=== PATIENT | male | born 1930 | race Caucasian/White ===

== ENCOUNTER 2018-02-17 17:00 | Emergency (ER) | payer BC ==
[2018-02-17] MEDS ORDERED: Lidocaine 1% INJ* 10 MG/ML 30 ML SDV ONE (17:05)
--- NOTE | 2018-02-17 17:12 | ED ---
Laceration/Wound HPI - HPI Summary HPI Summary: This patient is a 87 year old M BIBA to ED with a chief complaint of low BP and large blood loss s/p getting a small laceration on his R heel. The patient is on blood thinners. The patient was doing the recycling when he got a little cut on his foot and he didnt realize he was bleeding until he lost a lot of blood. The patient rates the pain 0/10 in severity. Symptoms aggravated by nothing. Symptoms alleviated by nothing. EMS reports the patient was diaphoretic, dizziness, pallor, and hypotensive upon arrival. Upon arrival to the ER, the patient is feeling a lot better. - History of Current Complaint Stated Complaint: HEMORRHAGE Hx Obtained From: Patient Onset/Duration: Sudden Onset, Lasting Minutes Aggravating: Nothing Alleviating: Nothing Current Severity: None Pain Intensity: 0 Pain Scale Used: 0-10 Numeric - Allergy/Home Medications Allergies/Adverse Reactions: Allergies Allergy/AdvReac Type Severity Reaction Status Date / Time MS Shellfish Allergy Allergy Intermediate Rash Verified 02/17/18 17:28 [Shellfish Allergy] MS Amiodarone [Amiodarone] Allergy Unknown Verified 02/17/18 17:28 Reaction Details MS Rivaroxaban [From Xarelto] Allergy Unknown Verified 02/17/18 17:28 Reaction Details MS Solifenacin Allergy Unknown Verified 02/17/18 17:28 [From Vesicare] Reaction Details Home Medications: Home Medications Apixaban* [Eliquis*] 2.5 mg PO BID 02/17/18 [History Confirmed 02/17/18] Aspirin EC TAB* [Ecotrin EC Low Dose 81 MG*] 81 mg PO DAILY 02/17/18 [History Confirmed 02/17/18] Atenolol TAB* [Tenormin TAB* 25 MG] 50 mg PO QPM 02/17/18 [History Confirmed ] Digoxin TAB* [Lanoxin TAB*] 0.125 mg PO QPM 02/17/18 [History Confirmed 02/17/18 ] Gabapentin CAP(*) [Neurontin 100 mg CAP(*)] 100 mg PO BEDTIME PRN 02/17/18 [ History Confirmed 02/17/18] Solifenacin(NF) [Vesicare(NF)] 5 mg PO DAILY 02/17/18 [History Confirmed ] PMH/Surg Hx/FS Hx/Imm Hx Endocrine/Hematology History: Reports: Hx Anticoagulant Therapy - ASA 81 mg Denies: Hx Diabetes, Hx Thyroid Disease Cardiovascular History: Reports: Hx Atrial Fibrillation, Hx Pacemaker/ICD - 2010 , Hx Rheumatic Fever, Other Cardiovascular Problems/Disorders - AFIB Denies: Hx Hypertension Respiratory History: Denies: Hx Asthma, Hx Chronic Obstructive Pulmonary Disease (COPD) GI History: Denies: Hx Ulcer History: Reports: Hx Benign Prostatic Hyperplasia, Other Problems/ Disorders - bladder CA Musculoskeletal History: Reports: Hx Arthritis - RIGHT HIP Sensory History: Reports: Hx Cataracts, Hx Contacts or Glasses - READING GLASSES Denies: Hx Hearing Aid Opthamlomology History: Reports: Hx Cataracts, Hx Contacts or Glasses - READING GLASSES - Cancer History Cancer Type, Location and Year: bladder cancer - - Surgical History Surgery Procedure, Year, and Place: appendectomy 1949, 2 hernias, pacemaker in 2007. Hx Anesthesia Reactions: No Infectious Disease History: Denies: Hx Hepatitis, Hx Human Immunodeficiency Virus (HIV) - Family History Known Family History: Positive: Diabetes - Social History Alcohol Use: Daily Alcohol Amount: BOTTLE WINE/DAY Substance Use Type: Reports: None Smoking Status (MU): Former Smoker Type: Cigars Length of Time of Smoking/Using Tobacco: 25 YRS Have You Smoked in the Last Year: No Review of Systems Positive: Skin Diaphoresis Positive: Other - hypotensive Positive: Other - pallor; small laceration on L heel, had large blood loss Neurological: Other - dizziness All Other Systems Reviewed And Are Negative: Yes Physical Exam - Summary Physical Exam Summary: Appearance: Well appearing, no pain distress Skin: warm, dry, reflects adequate perfusion. Bleeding spot over the R heel ( 0.5 cm long) Head/face: normal Eyes: EOMI, JOSS ENT: normal Neck: supple, non-tender Respiratory: CTA, breath sounds present Cardiovascular: RRR, pulses symmetrical Abdomen: non-tender, soft Bowel: present Musculoskeletal: normal, strength/ROM intact Neuro: normal, sensory motor intact, A&Ox3 Triage Information Reviewed: Yes Vital Signs Reviewed: Yes Procedures - Laceration/Wound Repair 1 Location: lower extremity - R heel Description: Linear Anesthesia: 2.0%, Lido - 5 cc Length, Depth and Shape: 0.5 cm long Laceration/Wound Explored: clean Suture Type: Other - 4-0 ethilon, figure or 8, raised, to control bleeding Number of Sutures: 1 Layer Closure?: Yes Sterile Dressing Applied?: Yes Diagnostics - Laboratory Result Diagrams: 02/17/18 17:53 02/17/18 17:53 Lab Statement: Any lab studies that have been ordered have been reviewed, and results considered in the medical decision making process. Re-Evaluation - Re-Evaluation First Eval Re-Evaluation Time: 18:33 Comment: Discussed lab results with the patient. Patient and family understand and agree with this plan. Laceration Repair Course/Dx - Course Assessment/Plan: This patient is a 87 year old M BIBA to ED with a chief complaint of low BP and large blood loss s/p getting a small laceration on his R heel. The patient's laceration over R heel was sutured x1 (figure of 8). In the ED course, the patient was given fluids and boostrix. Blood work obtained. This patient will be discharged. Patient understands and agrees wtih this plan. - Differential Dx Differental Diagnoses: Laceration, Other - laceration of foot, anemia - Clinical Impression Provider Diagnoses: Laceration of foot, Anemia - Critical Care Time Critical Care Time: 30-74 min Discharge - Sign-Out/Discharge Documenting (check all that apply): Patient Departure - discharge - Discharge Plan Condition: Stable Disposition: HOME Patient Education Materials: Care For Your Stitches (ED), Laceration (ED), Anemia (ED) Referrals: Porter Arrington MD [Primary Care Provider] - (Repeat CBC in 1 week with your PCP.) Additional Instructions: Have a wound check done in 3 days. Have suture removal on 02/22/2018. Repeat CBC in 1 week with your primary care provider. PLEASE RETURN TO THE ED FOR ANY NEW OR WORSENING SYMPTOMS. - Billing Disposition and Condition Condition: STABLE Disposition: Home - Attestation Statements Document Initiated by Scribe: Yes Documenting Scribe: James Silva Provider For Whom Elisa is Documenting (Include Credential): Nico Banerjee MD Scribe Attestation: James Lieberman, scribed for Nico Banerjee MD on 02/17/18 at 1854. Scribe Documentation Reviewed: Yes Provider Attestation: The documentation as recorded by the scribe, James Ricardo accurately reflects the service I personally performed and the decisions made by me, Nico Banerjee MD
[2018-02-17] MEDS ORDERED: NS 0.9% 1000 ML* 1,000 ML IV ONE (17:17)
[2018-02-17] MEDS ORDERED: Tetan/Diph/Pertus SYR(Tdap)* 0.5 ML SYR(BOOSTRIX) use SYR IM ONE (17:18)
--- OUTSIDE RECORDS SUMMARY | 2018-02-17 17:44 | XMS REPORT ---
:1930 External Reference #:[id number] Author Organization [facility] Address [address] [place] [address] [place] [address] Phone [phone] Care Team Providers Name Role Phone Porter Arrington MD Primary Care Physician Unavailable Payers Type Date Identification Numbers Payment Provider Subscriber Commercial Effective: Policy Number: BS Facets Nadeem Pereznett 2013 [id number] Group Name: [employer] [address] [address] PayID: [id number] [place] [address] Medigap Part B Effective: Policy Number: [facility] Alea Nadeem Moyer 2011 [id number] [place]ings Expires: 2012 Group Number: [id number] [address] Group Name: [place] [address] PayID: [id number] Medigap Part B Effective: 2012 Policy Number: Pcip Nadeem Stallings [id number] Expires: 2013 Group Number: [id number] [address] [address] [place] [address] Problems Date Description Provider Status Onset: 04/20/2013 Atrial fibrillation Dhara Caraballo M.D. Active Onset: 04/20/2013 Cardiac pacemaker in situ Dhara Caraballo M.D. Active Onset: 07/22/2013 Palpitations Dhara Caraballo M.D. Active Onset: 07/22/2013 Premature beats Dhara Caraballo M.D. Active Onset: 08/31/2013 Sinus node dysfunction GARCÍA Monterroso Active Onset: 09/30/2013 Malaise and fatigue GARCÍA Monterroso Active Onset: 09/30/2013 Paroxysmal ventricular tachycardia GARCÍA Monterroso Active Onset: 04/07/2014 Preoperative cardiovascular examination Dhara Caraballo M.D. Active Onset: 04/17/2015 Chronic atrial fibrillation Dhara Caraballo M.D. Active Onset: 04/17/2015 Edema Dhara Caraballo M.D. Active Onset: 11/11/2016 Cardiomyopathy Dhara Caraballo M.D. Active Onset: 11/11/2016 Mitral valve disorder Dhara Caraballo M.D. 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 ETOH Use Drinks 4 Alcoholic Beverages Per Day ETOH Use Denies alcohol use Smoking Patient is a former smoker quit in 1985 Recreational Drug Use Denies Drug Use Daily Caffeine Does Not Consume Caffeine Exercise Type/Frequency Does not exercise Goes up and down stairs daily and does housework General Hx Text Do you follow a special diet: no try to eat balance diet Do you have problems with snoring, daytime fatigue: no snoring, varying daytime fatigue. Allergies, Adverse Reactions, Alerts Date Description Reaction Status Severity Comments 04/20/2013 Amiodarone nightmares active 04/20/2013 Coumadin fatigue active 04/20/2013 Vit B3 active 06/01/2013 Vesicare violent palpitations active Moderate to Severe 08/31/2013 Xarelto fatigue/dizziness active 10/26/2015 Shellfish-derived active Products 10/26/2015 Tumeric Urticaria active Mild to Moderate Medications Medication Date Status Form Strength Qnty SIG Indications Ordering Provider Eliquis 07/03/ Active Tablets 2.5mg 60tab 1 tablet by Dhara 2018 s mouth twice a Ilya, day. blood M.D. thinner. Digoxin 09/30/ Active Tablets 125mcg 90tab take 1 tab I48.2 Dhara 2014 s daily at [place], night M.D. Ranitidine / Active Tablets 75mg 1 po qd prn, Unknown 0000 up to 150mg prn Diltiazem HCL / Active Tablets 30mg 180ta 1 po prn for Jander, 0000 bs epsiodes of MD Kaylyn palpitations at night (occasionally ) Atenolol / Active Tablets 25mg 180ta 2 tablet by Dhara 0000 bs mouth daily [place], at night M.D. Ketoconazole / Active Shampoo 2% Use Topically Unknown 0000 Ass Needed Imiquimod / Active Cream 5% As needed [place], 0000 [place], DPTerra Furosemide 10/27/ Hx Tablets 20mg 30tab take one tab Dhara 2015 - s by mouth Ilya, 04/17/ every other M.D. 2015 day or if weight gain >3 lbs ( pt stop taking 2 months ok , per Dr. Hahn) Metoprolol 10/14/ Hx Tablets 25mg 45tab 1 and 05/26 427.31 Dhara Succinate ER 2014 - ER 24HR s daily in [place], 04/06/ evening M.D. 2013 Xarelto 08/05/ Hx Tablets 20mg 20tab 1 tab po 427.31 Dhara 2013 - s daily with a Ilya, 08/12/ meal M.D. 2013 Diltiazem CD / Hx Caps ER 120mg 30cap 1 po qd Unknown 0000 - 24HR s 2013 Aspir-Low / Hx Tablets 81mg 30tab 1 po qd PM Unknown 0000 - DR s 2017 Coq-10 / Hx Capsules 30mg 1 po qd Unknown 0000 - 2013 Triamcinolone / Hx Cream 0.025% 15gm apply to Unknown Acetonide 0000 - affected area 10/24/ daily as 2016 needed Metoprolol / Hx Tablets 50mg 60tab po qhs 427.60 Dhara Succinate ER 0000 - ER 24HR s [place], 10/14/ M.D. 2014 Fluorouracil / Hx Solution 2% as needed Unknown 0000 - 2017 Gabapentin / Hx Capsules 100mg 1 by mouth Unknown 0000 - one times a 06/17/ day 2018 Terbinafine HCL / Hx Cream 1% apply to Unknown 0000 - affected as 06/16/ needed 2018 Medications Administered in Office Medication Date Status Form Strength Qnty SIG Indications Ordering Provider Xiaflex Inj Administered Injection Sarai Collagenase,Cl 012 Marc-Chandrakant ostridium g, M.D. Histolyticum, 0.01MG Xiaflex Inj Administered Injection Sarai Collagenase,Cl 012 Monico-Chandrakant ostridium g, M.D. Histolyticum, 0.01MG Xiaflex Inj Administered Injection Sarai Collagenase,Cl 012 Monico-Chandrakant ostridium g, M.D. Histolyticum, 0.01MG Xiaflex Inj Administered Injection Sarai Collagenase,Cl 012 Monico-Chandrakant ostridium g, M.D. Histolyticum, 0.01MG Xiaflex Inj Administered Injection Sarai Collagenase,Cl 011 Monico-Chandrakant ostridium g, M.D. Histolyticum, 0.01MG Xiaflex Inj Administered Injection Sarai Collagenase,Cl 011 Monico-Chandrakant ostridium g, M.D. Histolyticum, 0.01MG Xiaflex Inj Administered Injection Sarai Collagenase,Cl 011 Goran ostridium g, M.D. Histolyticum, 0.01MG Xiaflex Inj Administered Injection Sarai Collagenase,Cl 011 Goran ostridium g, M.D. Histolyticum, 0.01MG Vital Signs Date Vital Result Comment 02/02/2018 Height 66.5 inches 5'6.50" Weight 128.00 lb with shoes Heart Rate 60 /min BP Systolic Sitting 94 mmHg Rue reg cuff BP Diastolic Sitting 70 mmHg Rue reg cuff Respiratory Rate 16 /min BMI (Body Mass Index) 20.3 kg/m2 01/14/2018 Height 66.5 inches 5'6.50" Weight 133.00 lb with shoes Heart Rate 76 /min BP Systolic Sitting 100 mmHg lue reg cuff BP Diastolic Sitting 70 mmHg lue reg cuff BP Systolic Standing 100 mmHg BP Diastolic Standing 70 mmHg Respiratory Rate 16 /min BMI (Body Mass Index) 21.1 kg/m2 Ejection Fraction 55-60% 11/21/2015 echo 06/25/2017 Height 66.5 inches 5'6.50" Weight 132.00 lb Heart Rate 64 /min BP Systolic Sitting 102 mmHg Lue reg cuff BP Diastolic Sitting 68 mmHg Lue reg cuff BP Systolic Standing 104 mmHg Lue BP Diastolic Standing 70 mmHg Lue Respiratory Rate 16 /min BMI (Body Mass Index) 21.0 kg/m2 Ejection Fraction 55-60% 11/21/15 11/11/2016 Height 66.5 inches 5'6.50" Weight 128.00 lb with shoes Heart Rate 64 /min BP Systolic Sitting 112 mmHg Rue reg cuff BP Diastolic Sitting 60 mmHg Rue reg cuff BP Systolic Standing 112 mmHg Rue reg cuff BP Diastolic Standing 62 mmHg Rue reg cuff Respiratory Rate 15 /min BMI (Body Mass Index) 20.3 kg/m2 Ejection Fraction 55-60% 11/21/2015-echo 06/17/2016 Height 66.5 inches 5'6.50" Weight 134.00 lb with shoes Heart Rate 64 /min BP Systolic Sitting 122 mmHg Ra reg cuff BP Diastolic Sitting 62 mmHg Ra reg cuff BP Systolic Standing 122 mmHg Ra reg cuff BP Diastolic Standing 58 mmHg Ra reg cuff BMI (Body Mass Index) 21.3 kg/m2 Ejection Fraction 55% - 60% echo 11/21/15 10/26/2015 Height 66.5 inches 5'6.50" Weight 136.31 lb no shoes Heart Rate 60 /min BP Systolic Sitting 118 mmHg Ra reg cuff BP Diastolic Sitting 60 mmHg Ra reg cuff BP Systolic Standing 110 mmHg BP Diastolic Standing 58 mmHg Respiratory Rate 17 /min BMI (Body Mass Index) 21.7 kg/m2 Ejection Fraction 55-60% 07/06/15 04/17/2015 Height 66.5 inches 5'6.50" Weight 135.00 lb w/o shoes Heart Rate 58 /min reg BP Systolic Sitting 118 mmHg Lue, reg cuff BP Diastolic Sitting 64 mmHg Lue, reg cuff BP Systolic Standing 114 mmHg Lue BP Diastolic Standing 64 mmHg Lue Respiratory Rate 18 /min BMI (Body Mass Index) 21.5 kg/m2 Ejection Fraction 55-60% as of 05/11/13 echo 10/03/2014 Height 66.5 inches 5'6.50" Weight 138.00 lb with shoes Heart Rate 68 /min BP Systolic Sitting 104 mmHg LA, reg cuff BP Diastolic Sitting 66 mmHg LA, reg cuff BP Systolic Standing 104 mmHg LA BP Diastolic Standing 68 mmHg LA Respiratory Rate 14 /min BMI (Body Mass Index) 21.9 kg/m2 Ejection Fraction 55-60% 05/11/2013 04/07/2014 Height 66.5 inches 5'6.50" Weight 132.00 lb with shoes Heart Rate 86 /min BP Systolic Sitting 116 mmHg LA, reg cuff BP Diastolic Sitting 80 mmHg LA, reg cuff BP Systolic Standing 110 mmHg LA BP Diastolic Standing 76 mmHg LA Respiratory Rate 16 /min BMI (Body Mass Index) 21.0 kg/m2 11/23/2013 Height 66.5 inches 5'6.50" Weight 130.00 lb Heart Rate 74 /min BP Systolic Sitting 116 mmHg LA reg cuff BP Diastolic Sitting 70 mmHg LA reg cuff BP Systolic Standing 114 mmHg LA BP Diastolic Standing 76 mmHg LA Respiratory Rate 16 /min BMI (Body Mass Index) 20.7 kg/m2 10/14/2013 Height 66.5 inches 5'6.50" Weight 134.00 lb Heart Rate 74 /min irregular BP Systolic Sitting 104 mmHg LA reg cuff BP Diastolic Sitting 72 mmHg LA reg cuff BP Systolic Standing 104 mmHg LA BP Diastolic Standing 70 mmHg LA Respiratory Rate 16 /min BMI (Body Mass Index) 21.3 kg/m2 09/30/2013 Height 66.50 inches 5'6.50" Weight 133.00 lb w/o shoes Heart Rate 110 /min irregular BP Systolic Sitting 110 mmHg LA BP Diastolic Sitting 70 mmHg LA BP Systolic Standing 108 mmHg LA BP Diastolic Standing 70 mmHg LA Respiratory Rate 16 /min BMI (Body Mass Index) 21.1 kg/m2 08/31/2013 Height 66.50 inches 5'6.50" Weight 132.00 lb with shoes Heart Rate 106 /min 102 sit and stand HR irreg BP Systolic Sitting 110 mmHg Ra reg cuff BP Diastolic Sitting 78 mmHg Ra reg cuff BP Systolic Standing 110 mmHg Ra reg cuf BP Diastolic Standing 70 mmHg Ra reg cuf Respiratory Rate 18 /min BMI (Body Mass Index) 21.0 kg/m2 08/05/2013 Height 66.50 inches 5'6.50" Weight 134.00 lb with shoes Heart Rate 9690 /min sit and stand HR irreg BP Systolic Sitting 120 mmHg Ra reg cuff BP Diastolic Sitting 70 mmHg Ra reg cuff BP Systolic Standing 110 mmHg Ra reg cuff BP Diastolic Standing 72 mmHg Ra reg cuff Respiratory Rate 18 /min BMI (Body Mass Index) 21.3 kg/m2 07/22/2013 Height 66.50 inches 5'6.50" Weight 134.00 lb without shoes 2 lb gain since last Ov 06/01/13 Heart Rate 41671 /min sit and stang HR irreg BP Systolic Sitting 122 mmHg LA reg cuff BP Diastolic Sitting 74 mmHg LA reg cuff BP Systolic Standing 120 mmHg LA reg cuff BP Diastolic Standing 78 mmHg LA reg cuff Respiratory Rate 18 /min BMI (Body Mass Index) 21.3 kg/m2 06/01/2013 Height 66.50 inches 5'6.50" Weight 132.00 lb without shoes Heart Rate 471055 /min sit and stand HR irreg BP Systolic Sitting 126 mmHg R arm reg cuff BP Diastolic Sitting 70 mmHg R arm reg cuff BP Systolic Standing 120 mmHg R arm reg cuff BP Diastolic Standing 80 mmHg R arm reg cuff Respiratory Rate 18 /min BMI (Body Mass Index) 21.0 kg/m2 04/20/2013 Height 68 inches 5'8" Weight 127.00 lb Heart Rate 90 /min BP Systolic Sitting 102 mmHg Ra reg cuff BP Diastolic Sitting 60 mmHg Ra reg cuff BP Systolic Standing 90 mmHg Ra BP Diastolic Standing 54 mmHg Ra Respiratory Rate 20 /min BMI (Body Mass Index) 19.3 kg/m2 08/28/2010 Height 68 inches 5'8" Weight 135.00 lb Heart Rate 76 /min BP Systolic 125 mmHg BP Diastolic 77 mmHg BMI (Body Mass Index) 20.5 kg/m2 Results Test Date Test Result H/L Range Note Laboratory test finding 03/12/2017 Digoxin 0.6 ng/ml Low 0.8-2.0 Basic Metabolic Panel 03/12/2017 Sodium 132 mmol/L Low 133-145 Potassium 4.1 mmol/L 3.5-5.0 Chloride 98 mmol/L Low 101-111 Co2 Carbon Dioxide 25 mmol/L 22-32 Anion Gap 9 mmol/L 2-11 Glucose 153 mg/dL High 70-100 Blood Urea Nitrogen 9 mg/dL 6-24 Creatinine 0.78 mg/dL 0.67-1.17 BUN/Creatinine Ratio 11.5 8-20 Calcium 9.1 mg/dL 8.6-10.3 Egfr Non- 93.9 >60 Egfr 120.8 >60 1 Laboratory test 10/26/2015 B-Type Natriuretic 755 pg/mL High 2 finding Peptide BNP Laboratory test 01/05/2014 Hemoglobin A1c 5.3 % Less than 6.0 3 finding Laboratory test 11/30/2013 Digoxin 1.2 ng/ml 0.8-2.0 4, 5 finding Basic Metabolic 08/08/2013 Sodium 136 mmol/L 133-145 Panel Potassium 4.0 mmol/L 3.7-5.6 Chloride 98 mmol/L Low 101-111 Co2 Carbon Dioxide 28 mmol/L 22-32 Anion Gap 10 mmol/L 2-11 Glucose 216 mg/dL High 70-100 Blood Urea Nitrogen 18 mg/dL 6-24 Creatinine 0.96 mg/dL 0.67-1.17 BUN/Creatinine Ratio 18.8 8-20 Calcium 9.3 mg/dL 8.6-10.3 Egfr Non- 74.6 >60 Egfr 96.0 >60 6 Laboratory test finding 04/23/2013 Troponin I 0.01 ng/mL 0-0.06 7 B Type Natriuretic Peptide 395.0 pg/mL High 0-100 CKMB 04/23/2013 CKMB ng/mL 5.9 ng/mL High 0.3-4.0 8 Laboratory test finding 04/23/2013 Magnesium 1.8 mg/dL 1.7-2.6 Creatine Kinase 118 U/L 0-200 Comp Metabolic Panel 04/23/2013 Sodium 136 mmol/L 133-145 Potassium 3.9 mmol/L 3.5-5.0 Chloride 101 mmol/L 101-111 Co2 Carbon Dioxide 25.0 mmol/L 22-32 Anion Gap 10.0 mmol/L 2-11 Glucose 93 mg/dL 70-100 Blood Urea Nitrogen 13 mg/dL 6-24 Creatinine 0.80 mg/dL 0.50-1.40 BUN/Creatinine Ratio 16.3 8-20 Calcium 9.0 mg/dL 8.1-9.9 Total Protein 7.8 g/dL 6.2-8.1 Albumin 4.0 g/dL 3.2-5.2 Globulin 3.8 g/dL 2-4 Albumin/Globulin Ratio 1.1 1-3 Total Bilirubin 1.6 mg/dL High 0.4-1.5 Alkaline Phosphatase 34 U/L 30-110 Alt 33 U/L 14-54 Ast 68 U/L High 12-42 Egfr Non- 92.1 >60 Egfr 118.4 >60 9 CBC Auto Diff 04/23/2013 White Blood Count 3.5 10^3/uL Low 4.8-10.8 Red Blood Count 3.79 10^6/uL Low 4.0-5.4 Hemoglobin 13.6 g/dL Low 14.0-18.0 Hematocrit 39 % Low 42-52 Mean Corpuscular Volume 103 fL High 80-94 Mean Corpuscular Hemoglobin 36 pg High 27-31 Mean Corpuscular HGB Conc 35 g/dL 31-36 Red Cell Distribution Width 13 % 10.5-15 Platelet Count 132 10^3/uL Low 150-450 Mean Platelet Volume 8 um3 7.4-10.4 Abs Neutrophils 2.3 10^3/uL 1.5-7.7 Abs Lymphocytes 0.6 10^3/uL Low 1.0-4.8 Abs Monocytes 0.5 10^3/uL 0-0.8 Abs Eosinophils 0.1 10^3/uL 0-0.6 Abs Basophils 0 10^3/uL 0-0.2 Abs Nucleated RBC 0.01 10^3/uL Granulocyte % 64.9 % 38-83 Lymphocyte % 18.4 % Low 25-47 Monocyte % 13.4 % High 1-9 Eosinophil % 2.3 % 0-6 Basophil % 1.0 % 0-2 Nucleated Red Blood Cells % 0.2 Comp Metabolic Panel 04/18/2013 Sodium 134 mmol/L 133-145 Potassium 4.3 mmol/L 3.5-5.0 Chloride 100 mmol/L Low 101-111 Co2 Carbon Dioxide 24.0 mmol/L 22-32 Anion Gap 10.0 mmol/L 2-11 Glucose 136 mg/dL High 70-100 Blood Urea Nitrogen 17 mg/dL 6-24 Creatinine 0.80 mg/dL 0.50-1.40 BUN/Creatinine Ratio 21.3 High 8-20 Calcium 9.3 mg/dL 8.1-9.9 Total Protein 7.4 g/dL 6.2-8.1 Albumin 4.0 g/dL 3.2-5.2 Globulin 3.4 g/dL 2-4 Albumin/Globulin Ratio 1.2 1-3 Total Bilirubin 1.1 mg/dL 0.4-1.5 Alkaline Phosphatase 32 U/L 30-110 Alt 30 U/L 14-54 Ast 62 U/L High 12-42 Egfr Non- 92.1 >60 Egfr 118.4 >60 10 1 Because ethnic data is not always readily available, this report includes an eGFR for both -Americans and non- Americans. The National Kidney Disease Education Program (NKDEP) does not endorse the use of the MDRD equation for patients that are not between the ages of 18 and 70, are , have extremes of body size, muscle mass, or nutritional status, or are non- or non-. According to the National Kidney Foundation, irrespective of diagnosis, the stage of the disease is based on the level of kidney function: Stage Description GFR(mL/min/1.73 m(2)) 1 Kidney damage with normal or decreased GFR 90 2 Kidney damage with mild decrease in GFR 60-89 3 Moderate decrease in GFR 30-59 4 Severe decrease in GFR 15-29 5 Kidney failure <15 (or dialysis) 2 >100 to <200 pg/mL: likely compensated congestive heart failure (CHF) 200 to 400 pg/mL: likely moderate CHF >400 pg/mL: likely moderate to severe CHF 3 Therapeutic target for the treatment of diabetes Mellitus patients is <7% HBA1C, and in selective patients <6.0%.Please refer to [place] [employer] Diabetic care guidelines for further information. 4 non-fasting to be done in next week 5 non-fasting to be done in next week 6 Because ethnic data is not always readily available, this report includes an eGFR for both -Americans and non- Americans. The National Kidney Disease Education Program (NKDEP) does not endorse the use of the MDRD equation for patients that are not between the ages of 18 and 70, are , have extremes of body size, muscle mass, or nutritional status, or are non- or non-. According to the National Kidney Foundation, irrespective of diagnosis, the stage of the disease is based on the level of kidney function: Stage Description GFR(mL/min/1.73 m(2)) 1 Kidney damage with normal or decreased GFR 90 2 Kidney damage with mild decrease in GFR 60-89 3 Moderate decrease in GFR 30-59 4 Severe decrease in GFR 15-29 5 Kidney failure <15 (or dialysis) 7 Reference Range and Interpretation: TnI (ng/mL) Interpretation Less Than 0.06 ng/mL Not supportive of diagnosis of ND 0.06 - 0.50 ng/mL Indeterminate: suggest serial studies if clinically indicated. Greater than 0.5 ng/mL Consistent with diagnosis of ND 8 CKMB interpretation should be made in conjunction with clinical symptoms, patient history and EKG changes. 9 Because ethnic data is not always readily available, this report includes an eGFR for both -Americans and non- Americans. The National Kidney Disease Education Program (NKDEP) does not endorse the use of the MDRD equation for patients that are not between the ages of 18 and 70, are , have extremes of body size, muscle mass, or nutritional status, or are non- or non-. According to the National Kidney Foundation, irrespective of diagnosis, the stage of the disease is based on the level of kidney function: Stage Description GFR(mL/min/1.73 m(2)) 1 Kidney damage with normal or decreased GFR 90 2 Kidney damage with mild decrease in GFR 60-89 3 Moderate decrease in GFR 30-59 4 Severe decrease in GFR 15-29 5 Kidney failure <15 (or dialysis) 10 Because ethnic data is not always readily available, this report includes an eGFR for both -Americans and non- Americans. The National Kidney Disease Education Program (NKDEP) does not endorse the use of the MDRD equation for patients that are not between the ages of 18 and 70, are , have extremes of body size, muscle mass, or nutritional status, or are non- or non-. According to the National Kidney Foundation, irrespective of diagnosis, the stage of the disease is based on the level of kidney function: Stage Description GFR(mL/min/1.73 m(2)) 1 Kidney damage with normal or decreased GFR 90 2 Kidney damage with mild decrease in GFR 60-89 3 Moderate decrease in GFR 30-59 4 Severe decrease in GFR 15-29 5 Kidney failure <15 (or dialysis) Procedures Date CPT Code Description Status 01/21/2018 31757 ECHO Transthoracic, Real-Time 2D With Doppler And Color Completed Flow 01/21/2018 01425 ECHO Transthoracic, Real-Time 2D With Doppler And Color Completed Flow 01/14/2018 98031 Pace Maker Eval W/Iterative Adjment Dual Lead Completed 01/14/2018 13458 Pace Maker Eval W/Iterative Adjment Dual Lead Completed 06/25/2017 93161 EKG Tracing & Interpretation Completed 06/22/2017 22328 Pace Maker Eval W/Iterative Adjustment Single Lead Completed 06/22/2017 18268 Pace Maker Eval W/Iterative Adjustment Single Lead Completed 11/11/2016 01455 Pace Maker Eval W/Iterative Adjustment Single Lead Completed 06/17/2016 62806 EKG Tracing & Interpretation Completed 05/01/2016 55479 Pace Maker Eval W/Iterative Adjustment Single Lead Completed 11/21/2015 51543 Echocardiogram, Limited Study Completed 10/10/2015 41829 Pace Maker Eval W/Iterative Adjustment Single Lead Completed 07/06/2015 62894 ECHO Transthoracic, Real-Time 2D With Doppler And Color Completed Flow 07/06/2015 29599 ECHO Transthoracic, Real-Time 2D With Doppler And Color Completed Flow 04/17/2015 26607 EKG Tracing & Interpretation Completed 04/11/2015 85106 Pace Maker Eval W/Iterative Adjustment Single Lead Completed 10/03/2014 38162 Interrogation Device Eval In Person W/DR Completed Analysis,Single,Dual,Mul 04/07/2014 70751 EKG Tracing & Interpretation Completed 04/03/2014 61144 Pace Maker Eval W/Iterative Adjustment Single Lead Completed 10/14/2013 74248 EKG Tracing & Interpretation Completed 10/10/2013 26116 Holter Monitoring 24 HR New Completed 09/28/2013 00799 Pace Maker Eval W/Iterative Adjustment Single Lead Completed 08/31/2013 55205 Pace Maker Eval W/Iterative Adjustment Single Lead Completed 08/24/2013 95227 Holter Monitoring 24 HR New Completed 08/05/2013 58270 EKG Tracing & Interpretation Completed 06/16/2013 89370 Cardiac Event Monitor Completed 05/11/2013 32464 ECHO Transthoracic, Real-Time 2D With Doppler And Color Completed Flow 04/20/2013 54092 Pace Maker Eval W/Iterative Adjustment Single Lead Completed 04/20/2013 88027 EKG Tracing & Interpretation Completed 10/12/2012 55531 Pace Maker Eval W/Iterative Adjustment Single Lead Completed 04/14/2012 11689 ECHO Transthoracic, Real-Time 2D With Doppler And Color Completed Flow 04/13/2012 54987 Interrogation Device Eval In Person W/DR Completed Analysis,Single,Dual,Mul 04/13/2012 76060 EKG Tracing & Interpretation Completed 10/29/2011 38581 Manipulation,Palmar Fascial Cord, Post Enzyme Injection Completed Single 10/28/2011 61450 Injection,Enzyme Palmar Fascial Cord Completed 08/19/2011 14149 Manipulation,Palmar Fascial Cord, Post Enzyme Injection Completed Single 08/18/2011 Injection,Enzyme Palmar Fascial Cord Completed 07/15/201199276 Manipulation,Palmar Fascial Cord, Post Enzyme Injection Completed Single 07/14/2011 Injection,Enzyme Palmar Fascial Cord Completed 06/10/201184552 Manipulation,Palmar Fascial Cord, Post Enzyme Injection Completed Single 06/09/201128418 Inject Tendon Sheath Or Ligament Aponeurosis Eg Plantar Completed Fascia 06/09/201193357 Injection,Enzyme Palmar Fascial Cord Completed 05/06/2011 99525 Unlisted Procedure, Hands/Fingers Completed 05/05/201174325 Inject Tendon Sheath Or Ligament Aponeurosis Eg Plantar Completed Fascia 03/21/2011 20042 Unlisted Procedure, Hands/Fingers Completed 03/20/201149035 Inject Tendon Sheath Or Ligament Aponeurosis Eg Plantar Completed Fascia 02/05/2011 70670 Unlisted Procedure, Hands/Fingers Completed 02/04/201101265 Inject Tendon Sheath Or Ligament Aponeurosis Eg Plantar Completed Fascia 12/25/2010 58429 Unlisted Procedure, Hands/Fingers Completed 12/24/2010 51955 Inject Tendon Sheath Or Ligament Aponeurosis Eg Plantar Completed Fascia Encounters Type Date Location Provider CPT E/M Dx Office Visit 01/14/2018 1:50p [facility] Dhara Caraballo M.D. 93440 I48.2 [facility] R60.9 Z95.0 R35.1 I34.0 J94.9 Office Visit 06/25/2017 3:00p [facility] Tete Caraballo M.D. 56963 I48.2 [facility] Z95.0 R60.0 I34.0 Office Visit 11/11/2016 1:15p [facility] Dhara Caraballo M.D. 62479 I48.2 [facility] Z95.0 R60.0 I34.0 I42.8 Office Visit 06/17/2016 11:30a [facility] Dhara Caraballo M.D. 39823 Z95.0 [employer] I48.2 Office Visit 10/26/2015 11:15a [facility] GARCÍA Monterroso 88014 Z95.0 I48.2 R60.9 R06.02 Office Visit 04/17/2015 1:30p [facility] Dhara Caraballo M.D. 73964 Z95.0 [facility] I48.2 R60.0 I49.5 Office Visit 10/03/2014 11:30a [facility] Dhara Caraballo M.D. 40509 V45.01 [employer] 427.31 Office Visit 04/07/2014 1:30p [facility] Dhara Caraballo M.D. 78344 427.31 [employer] 427.1 427.60 V72.81 V45.01 Office Visit 11/23/2013 11:00a [facility] GARCÍA Monterroso 85560 785.1 427.31 V45.01 427.81 Office Visit 10/14/2013 11:00a [facility] GARCÍA Monterroso 14854 427.31 785.1 780.79 427.1 Office Visit 09/30/2013 11:00a [facility] GARCÍA Monterroso 40330 427.31 785.1 780.79 427.1 Office Visit 08/31/2013 10:30a [facility] GARCÍA Monterroso 27267 V45.01 427.31 427.81 Office Visit 08/05/2013 11:00a [facility] [facility] GARCÍA [place]ter[place] [id number] [phone] Office Visit 07/22/2013 11:15a [facility] Caraballo M.D. 37034 [phone] [employer] [phone] V45.01 Office Visit 06/01/2013 11:00a [facility] Caraballo M.D. [id number] [phone] [employer] 785.1 Office Visit 04/20/2013 11:30a [facility] Caraballo M.D. 06118 [phone] [employer] V45.01 Office Visit 07/07/2012 11:30a [facility] Ricardo M.D. 94176 [phone] C.M.A. 843.8 Office Visit 06/16/2012 11:00a [facility] 17802 [phone] C.M.A. Office Visit 04/13/2012 1:45p [facility] Caraballo M.D. 35007 [phone] [facility] Office Visit 06/23/2011 10:00a [facility] 69787 728.6 Meena Hicks M.D. Office Visit 06/17/2011 11:30a [facility] 87980 728.6 Meena Hicks M.D. 883.0 Office Visit 02/11/2011 11:15a [facility] Kurt 54517 728.6 Of Meena Nelson 736.29 Office Visit 08/28/2010 1:30p [facility] Kurt 51989 728.6 Of Meena Nelson Plan of Care 02/02/2018 - Sandra CarrascoPYumiI34.0 Nonrheumatic mitral (valve) insufficiencyComments:Mitral valve function is stable.Aortic valve is tight.Follow up:OV/PO 5 mo LSRecommendations:If you are dizzy, lightheaded or develop shortness of breath that may be a sign that your valve has progressed.I49.5 Sick sinus [id number] Chronic atrial fibrillationComments: Heart rate controlled.J94.9 Pleural condition, unspecifiedComments:You have a small fluid collection in the R lungRecommendations:I will discuss with Dr. Caraballo and let you know how we will monitor/ treat this.
[2018-02-17 18:14] LABS: Hematocrit 27 % (42-52); Hemoglobin 9.1 g/dl (14.0-18.0); Mean Corpuscular HGB Conc 34 g/dl (31-36); Mean Corpuscular Hemoglobin 35 pg (27-31); Mean Corpuscular Volume 104 fL (80-94); Red Blood Count 2.58 10^6/ul (4.00-5.40); Red Cell Distribution Width 13 % (10.5-15); White Blood Count 4.3 10^3/ul (3.5-10.8)
[2018-02-17 18:17] LABS: EGFR Non-African American 99.6 (>60); INR 1.56 (0.77-1.02)
[2018-02-17 18:37] VITALS: BP 104/62
[2018-02-17 19:18] LABS: ABS Basophils 0 10^3/ul (0-0.2); ABS Eosinophils 0.1 10^3/ul (0-0.6); ABS Lymphocytes 0.6 10^3/ul (1.0-4.8); ABS Monocytes 0.5 10^3/ul (0-0.8); ABS Neutrophils 3.1 10^3/ul (1.5-7.7); ABS Nucleated RBC 0 10^3/ul; Eosinophil % 1.9 % (0-6); Lymphocyte % 14.4 % (25-47); Mean Platelet Volume 7.2 um3 (7.4-10.4); Nucleated Red Blood Cells % 0.1; Platelet Count 91 10^3/ul (150-450)
== END 2018-02-17 19:24 | disposition home or self-care (01) ==
LOC: ED 17:00
DX: S91.311A Laceration without foreign body, right foot, initial encounter (principal); W45.8XXA Other foreign body or object entering through skin, initial encounter; Y92.9 Unspecified place or not applicable; D64.9 Anemia, unspecified; Z23 Encounter for immunization; Z79.01 Long term (current) use of anticoagulants; Z79.82 Long term (current) use of aspirin; Z87.891 Personal history of nicotine dependence; Z88.8 Allergy status to other drugs, medicaments and biological substances
CPT/HCPCS: 12001; 36415; 80053; 85025; 85060; 85610; 85730; 90471; 90715; 99282

== ENCOUNTER 2018-02-17 21:44 | Emergency (ER) | payer BC ==
[2018-02-17] MEDS ORDERED: NS 0.9% 1000 ML* 1,000 ML IV ONE (22:15)
[2018-02-17 22:38] LABS: ABS Basophils 0 10^3/ul (0-0.2); ABS Eosinophils 0 10^3/ul (0-0.6); ABS Lymphocytes 0.7 10^3/ul (1.0-4.8); ABS Monocytes 0.5 10^3/ul (0-0.8); ABS Neutrophils 3.9 10^3/ul (1.5-7.7); ABS Nucleated RBC 0 10^3/ul; Eosinophil % 0.4 % (0-6); Hematocrit 29 % (42-52); Hemoglobin 9.8 g/dl (14.0-18.0); Lymphocyte % 13.2 % (25-47); Mean Corpuscular HGB Conc 34 g/dl (31-36); Mean Corpuscular Hemoglobin 35 pg (27-31); Mean Corpuscular Volume 104 fL (80-94); Mean Platelet Volume 7.2 um3 (7.4-10.4); Nucleated Red Blood Cells % 0.1; Platelet Count 105 10^3/ul (150-450); Red Blood Count 2.79 10^6/ul (4.00-5.40); Red Cell Distribution Width 13 % (10.5-15); White Blood Count 5.2 10^3/ul (3.5-10.8)
[2018-02-17 22:43] LABS: INR 1.4 (0.77-1.02)
[2018-02-17 23:00] LABS: EGFR Non-African American 81.5 (>60)
--- NOTE | 2018-02-18 01:35 | RAD ---
EXAM: CT Head Without Intravenous Contrast CLINICAL HISTORY: 87 years old, male; Signs and symptoms; Altered mental status/memory loss and dizziness; Confusion or disorientation; Additional info: AMS TECHNIQUE: Axial computed tomography images of the head/brain without intravenous contrast. All CT scans at this facility use at least one of these dose optimization techniques: automated exposure control; mA and/or kV adjustment per patient size (includes targeted exams where dose is matched to clinical indication); or iterative reconstruction. COMPARISON: No relevant prior studies available. FINDINGS: Brain: There is no acute intracranial abnormality. Moderate prominence of ventricles and sulci representing volume loss. Moderate small vessel ischemic changes are seen. There is no mass, midline shift, or mass effect. Castellanos-white matter differentiation is preserved. There is no evidence of hemorrhage. There is no extra-axial fluid collection. Basal cisterns are patent. Bones/joints: Unremarkable. No acute fracture. Soft tissues: Unremarkable. Sinuses: Unremarkable as visualized. No acute sinusitis. Mastoid air cells: Unremarkable as visualized. No mastoid effusion. IMPRESSION: Moderate volume loss and small vessel ischemic changes. No acute intracranial abnormality.
--- NOTE | 2018-02-18 03:23 | ED ---
Syncope/Near Syncope - HPI Summary HPI Summary: Patient presents for episode of near syncope/possible syncope after getting up from a bowel movement this afternoon. Patient currently at baseline, alert and oriented. Patient was seen in the this ED earlier today for laceration to heel and hypotension. Patient was given fluids and discharged home. Patient denies prior history of syncope. Patient has hx of chronic EtOH use. Denies speech change, focal deficits, facial droop, altered mental status, fever, cough, sore throat, CP, SOB, N/V/D, abdominal pain, change in urine, change in BM. Medical history is A. fib with pacemaker, taking Eliquis. Patient states pacemaker was interrogated 3 weeks ago and was told it has 2-1/2 years of life left. - History Of Current Complaint Chief Complaint: EDSyncope Time Seen by Provider: 02/17/18 22:15 Hx Obtained From: Patient Onset/Duration: Sudden Onset Timing: Seconds Context: Witnessed Activity At Onset: Other - Post bowel movement Associated Head Trauma: No Aggravating Factor(s): Nothing Alleviating Factor(s): Nothing - Allergies/Home Medications Allergies/Adverse Reactions: Allergies Allergy/AdvReac Type Severity Reaction Status Date / Time MS Shellfish Allergy Allergy Intermediate Rash Verified 02/17/18 21:55 [Shellfish Allergy] MS Amiodarone [Amiodarone] Allergy Unknown Verified 02/17/18 21:55 Reaction Details MS Rivaroxaban [From Xarelto] Allergy Unknown Verified 02/17/18 21:55 Reaction Details MS Solifenacin Allergy Unknown Verified 02/17/18 21:55 [From Vesicare] Reaction Details PMH/Surg Hx/FS Hx/Imm Hx Endocrine/Hematology History: Reports: Hx Anticoagulant Therapy - ASA 81 mg Denies: Hx Diabetes, Hx Thyroid Disease Cardiovascular History: Reports: Hx Atrial Fibrillation, Hx Pacemaker/ICD - 2011 , Hx Rheumatic Fever, Other Cardiovascular Problems/Disorders - AFIB Denies: Hx Hypertension Respiratory History: Denies: Hx Asthma, Hx Chronic Obstructive Pulmonary Disease (COPD) GI History: Denies: Hx Ulcer History: Reports: Hx Benign Prostatic Hyperplasia, Other Problems/ Disorders - bladder CA Musculoskeletal History: Reports: Hx Arthritis - RIGHT HIP Sensory History: Reports: Hx Cataracts, Hx Contacts or Glasses - READING GLASSES Denies: Hx Hearing Aid Opthamlomology History: Reports: Hx Cataracts, Hx Contacts or Glasses - READING GLASSES - Cancer History Cancer Type, Location and Year: bladder cancer - - Surgical History Surgery Procedure, Year, and Place: appendectomy 1950, 2 hernias, pacemaker in 2008. Hx Anesthesia Reactions: No - Immunization History Date of Tetanus Vaccine: unknown Infectious Disease History: No Infectious Disease History: Denies: Hx Hepatitis, Hx Human Immunodeficiency Virus (HIV), Traveled Outside the [place] in Last 30 Days - Family History Known Family History: Positive: Diabetes - Social History Alcohol Use: Daily Alcohol Amount: BOTTLE WINE/DAY Substance Use Type: Reports: None Smoking Status (MU): Former Smoker Type: Cigars Length of Time of Smoking/Using Tobacco: 25 YRS Have You Smoked in the Last Year: No Review of Systems Constitutional: Negative Eyes: Negative ENT: Negative Cardiovascular: Negative Respiratory: Negative Gastrointestinal: Negative Genitourinary: Negative Musculoskeletal: Negative Skin: Negative Positive: Syncope Psychological: Normal All Other Systems Reviewed And Are Negative: Yes Physical Exam - Summary Physical Exam Summary: Patient alert and oriented, speaking and responding coherently and appropriately. Patient states he is at baseline. Triage Information Reviewed: Yes Vital Signs On Initial Exam: Initial Vitals Temp Pulse Resp BP Pulse Ox 97.3 F 60 16 84/42 98 02/17/18 21:45 02/17/18 21:45 02/17/18 21:45 02/17/18 21:45 02/17/18 21:45 Vital Signs Reviewed: Yes Appearance: Positive: Well-Appearing Skin: Positive: Warm Head/Face: Positive: Normal Head/Face Inspection Eyes: Positive: Normal Neck: Positive: Supple Respiratory/Lung Sounds: Positive: Clear to Auscultation Cardiovascular: Positive: Normal Abdomen Description: Positive: Nontender Musculoskeletal: Positive: Normal Neurological: Positive: Normal Psychiatric: Positive: Normal AVPU Assessment: Alert - [place] Coma Scale Best Eye Response: 4 - Spontaneous Best Motor Response: 6 - Obeys Commands Best Verbal Response: 5 - Oriented Coma Scale Total: 15 Diagnostics - Vital Signs Vital Signs Temp Pulse Resp BP Pulse Ox 02/18/18 00:00 63 20 97 02/17/18 23:59 63 17 95/61 98 02/17/18 23:29 62 14 105/59 99 02/17/18 23:01 67 19 98 02/17/18 22:59 61 19 93/50 97 02/17/18 22:58 15 02/17/18 21:45 97.3 F 60 16 84/42 98 - Laboratory Lab Results: Lab Results 02/17/18 02/17/18 02/17/18 Range/Units 22:30 22:30 22:30 WBC 5.2 (3.5-10.8) 10^3/ul RBC 2.79 L (4.00-5.40) 10^6/ul Hgb 9.8 L (14.0-18.0) g/dl Hct 29 L (42-52) % MCV 104 H (80-94) fL MCH 35 H (27-31) pg MCHC 34 (31-36) g/dl RDW 13 (10.5-15) % Plt Count 105 L (150-450) 10^3/ul MPV 7.2 L (7.4-10.4) um3 Neut % (Auto) 75.0 (38-83) % Lymph % (Auto) 13.2 L (25-47) % [place] % (Auto) 10.5 H (0-7) % Eos % (Auto) 0.4 (0-6) % Baso % (Auto) 0.9 (0-2) % Absolute Neuts (auto) 3.9 (1.5-7.7) 10^3/ul Absolute Lymphs (auto) 0.7 L (1.0-4.8) 10^3/ul Absolute Monos (auto) 0.5 (0-0.8) 10^3/ul Absolute Eos (auto) 0 (0-0.6) 10^3/ul Absolute Basos (auto) 0 (0-0.2) 10^3/ul Absolute Nucleated RBC 0 10^3/ul Nucleated RBC % 0.1 INR (Anticoag Therapy) 1.40 H (0.77-1.02) Sodium 136 (135-145) mmol/L Potassium 4.1 (3.5-5.0) mmol/L Chloride 104 (101-111) mmol/L Carbon Dioxide 24 (22-32) mmol/L Anion Gap 8 (2-11) mmol/L BUN 12 (6-24) mg/dL Creatinine 0.88 (0.67-1.17) mg/dL Est GFR ( Amer) 98.7 (>60) Est GFR (Non-Af Amer) 81.5 (>60) BUN/Creatinine Ratio 13.6 (8-20) Glucose 181 H (70-100) mg/dL Calcium 8.6 (8.6-10.3) mg/dL Total Bilirubin 1.20 H (0.2-1.0) mg/dL AST 28 (13-39) U/L ALT 8 (7-52) U/L Alkaline Phosphatase 28 L (34-104) U/L Troponin I 0.00 (<0.04) ng/mL C-Reactive Protein 6.73 (<8.01) mg/L Total Protein 6.6 (6.4-8.9) g/dL Albumin 3.5 (3.2-5.2) g/dL Globulin 3.1 (2-4) g/dL Albumin/Globulin Ratio 1.1 (1-3) Digoxin 0.7 L (0.8-2.0) ng/ml Result Diagrams: 02/17/18 22:30 02/17/18 22:30 Lab Statement: Any lab studies that have been ordered have been reviewed, and results considered in the medical decision making process. Course/Dx Course Of Treatment: Patient presents for episode of near syncope/possible syncope after getting up from a bowel movement this afternoon. Patient currently at baseline, alert and oriented. Patient was seen in the this ED earlier today for laceration to heel and hypotension. Patient was given fluids and discharged home. Patient denies prior history of syncope. Patient has hx of chronic EtOH use. Denies speech change, focal deficits, facial droop, altered mental status, fever, cough, sore throat, CP, SOB, N/V/D, abdominal pain , change in urine, change in BM. Medical history is A. fib with pacemaker, taking Eliquis. Patient states pacemaker was interrogated 3 weeks ago and was told it has 2-1/2 years of life left. Exam: Patient alert and oriented, speaking and responding coherently and appropriately. Patient states he is at baseline. Patient was hypotensive which has improved with fluids. Patient remains at baseline. Patient heart rate between 50 and 65. Pacemaker sent for 60. Patient anemic, but has improved from visit earlier today. Labs otherwise unremarkable. Chest x-ray negative. EKG has paced rhythm. Patient has been ambulated around the ED and states he feels still a little lightheaded but was stable during ambulation. Discussed patient with Dr. Caraballo production control clerk for cardiology who was stated she did not believe this was a case requiring cardiology. Attending physician Dr. Durbin wishes admission. Hospitalist will be consulted. - Diagnoses Provider Diagnoses: Ear pain, right Discharge - Sign-Out/Discharge Documenting (check all that apply): Patient Departure - Discharge Plan Condition: Stable Disposition: HOME Patient Education Materials: Earache (ED) Referrals: Porter Arrington MD [Primary Care Provider] - Additional Instructions: Follow-up with primary care. Return to the ED for any new or worsening symptoms - Billing Disposition and Condition Condition: STABLE Disposition: Home
[2018-02-18 05:23] VITALS: BP 108/59
--- NOTE | 2018-02-18 06:32 | HP ---
H&P (Free Text) History and Physical: PCP: Arnav Arrington MD Cardiology: Sivakumar Caraballo MD Date/Time: 02/18/2018 034 CC: near-syncope HPI: Mr Gonzalez is an 87YO male HX AFIB, CAD/WA, pacer placement, CHF, TIA, Rheumatic fever who presented to ED earlier yesterday for a small laceration to the R plantar foot from broken glass which reportedly bled quite a bit 2nd his anticoagulation with apixaban for AFIB. Bleeding was controlled with a suture, he was given IVFs and discharged. After arriving home he ate some fish and needed to have a bowel movement. While walking returning from the restroom he developed sudden onset of mixed spinning dizziness and light-headedness, nausea , sweating, and mild confusion. Daughters who were present stated is color appeared off "greenish". He denies chest pain, SOB, palpitations, LOC, focal W/N /T, emesis, or other issues. He sat in a chair and rested his head. Daughters called his PCP who advised he return to ED for evaluation. While shortly after getting in the car and sitting back with his head resting on the headrest he felt better. Total time of symptoms was 15-20minutes. He did not lay down during this period. Upon arrival to ED he was noted to have a low blood pressure , systolic in the 80s, but review of records reveals this is within his normal range. ECG was paced. CT brain WO was negative. Sivakumar Caraballo MD was consulted by ED and I spoke with her as well. She did not feel the etiology was cardiac. He received 1L NS IV afterwards he ambulated the circumference of the ED without difficulty and orthostatic vitals were negative (L: 105/65: Si: 95/60: St: 108/ 59). I had an extensive conversation with him and his daughters explaining the most fitting diagnosis was that of vasovagal syndrome which was somewhat more prolonged than typical as he remained sitting throughout rather than lying. I also informed them that other more serious diagnoses, such VT, TIA, etc, could not be ruled out, but were considered much less likely. They were offered observation for further telemetry, but all would prefer discharge with close outpatient follow up with PCP and cardiology. PMedHx AFIB superficial bladder CA esophageal polyp w/ occasional dysphagia rheumatic fever CHF CAD/WA TIA chronic BLE edema Ambulatory Orders Apixaban* [Eliquis*] 2.5 mg PO BID 02/17/18 Aspirin EC TAB* [Ecotrin EC Low Dose 81 MG*] 81 mg PO DAILY 02/17/18 Atenolol TAB* [Tenormin TAB* 25 MG] 50 mg PO QPM 02/17/18 Digoxin TAB* [Lanoxin TAB*] 0.125 mg PO QPM 02/17/18 Gabapentin CAP(*) [Neurontin 100 mg CAP(*)] 100 mg PO BEDTIME PRN 02/17/18 Solifenacin(NF) [Vesicare(NF)] 5 mg PO DAILY 02/17/18 Allergies MS Shellfish Allergy [Shellfish Allergy] Allergy (Intermediate, Verified 21:55) Rash MS Amiodarone [Amiodarone] Allergy (Verified 02/17/18 21:55) Unknown Reaction Details MS Rivaroxaban [From Xarelto] Allergy (Verified 02/17/18 21:55) Unknown Reaction Details MS Solifenacin [From Vesicare] Allergy (Verified 02/17/18 21:55) Unknown Reaction Details PSurgHx TURP transurethral resection of bladder CA pacer placement tonsillectomy appendectomy SocHx: former smoker (25years cigar), ~1 bottle of wine daily, no recreational drugs; , lives alone FamHx: reviewed & non-contributory to presentation ROS: as above, otherwise reviewed and all were negative vitals: Vital Signs Temp 36.3 C 02/17/18 21:45 Pulse 60 02/18/18 05:10 Resp 14 02/18/18 02:29 BP 108/59 02/18/18 05:11 Pulse Ox 96 02/18/18 05:10 Intake & Output 02/17/18 02/17/18 02/18/18 11:59 23:59 11:59 Weight 57.153 kg Constitutional: NAD, normally developed, well-nourished elderly white male HEENM: atraumatic; sclera/conjunctiva: anicteric/clear; hearing: clinically intact; oropharynx: clear, mucosa moist Neck: soft tissue: non-tender; thyroid: normal Pulmonary: clear to auscultation bilaterally, good aeration, no accessory muscle use CV: RR/RR, normal S1S2, no carotid bruit, no jugular venous distention, 2+ B DP/ PT, 1+ BLE edema Abdominal: soft, non-distended, non-tender, no rebound/guarding/rigidity, normoactive bowel sounds, no hepatosplenomegaly or masses, no costovertebral angle tenderness Musculoskeletal: general: grossly intact; gait: stable Integumental: R foot in clean & dry dressing Psychiatric orientation: AA&O to PPS affect: calm mood: cooperative eye contact: good content: reliable memory: intact responses: timely insight: good Testing: Lab Results 02/17/18 02/17/18 02/17/18 Range/Units 22:30 22:30 22:30 WBC 5.2 (3.5-10.8) 10^3/ul RBC 2.79 L (4.00-5.40) 10^6/ul Hgb 9.8 L (14.0-18.0) g/dl Hct 29 L (42-52) % MCV 104 H (80-94) fL MCH 35 H (27-31) pg MCHC 34 (31-36) g/dl RDW 13 (10.5-15) % Plt Count 105 L (150-450) 10^3/ul MPV 7.2 L (7.4-10.4) um3 Neut % (Auto) 75.0 (38-83) % Lymph % (Auto) 13.2 L (25-47) % [place] % (Auto) 10.5 H (0-7) % Eos % (Auto) 0.4 (0-6) % Baso % (Auto) 0.9 (0-2) % Absolute Neuts (auto) 3.9 (1.5-7.7) 10^3/ul Absolute Lymphs (auto) 0.7 L (1.0-4.8) 10^3/ul Absolute Monos (auto) 0.5 (0-0.8) 10^3/ul Absolute Eos (auto) 0 (0-0.6) 10^3/ul Absolute Basos (auto) 0 (0-0.2) 10^3/ul Absolute Nucleated RBC 0 10^3/ul Nucleated RBC % 0.1 INR (Anticoag Therapy) 1.40 H (0.77-1.02) Sodium 136 (135-145) mmol/L Potassium 4.1 (3.5-5.0) mmol/L Chloride 104 (101-111) mmol/L Carbon Dioxide 24 (22-32) mmol/L Anion Gap 8 (2-11) mmol/L BUN 12 (6-24) mg/dL Creatinine 0.88 (0.67-1.17) mg/dL Est GFR ( Amer) 98.7 (>60) Est GFR (Non-Af Amer) 81.5 (>60) BUN/Creatinine Ratio 13.6 (8-20) Glucose 181 H (70-100) mg/dL Calcium 8.6 (8.6-10.3) mg/dL Total Bilirubin 1.20 H (0.2-1.0) mg/dL AST 28 (13-39) U/L ALT 8 (7-52) U/L Alkaline Phosphatase 28 L (34-104) U/L Troponin I 0.00 (<0.04) ng/mL C-Reactive Protein 6.73 (<8.01) mg/L Total Protein 6.6 (6.4-8.9) g/dL Albumin 3.5 (3.2-5.2) g/dL Globulin 3.1 (2-4) g/dL Albumin/Globulin Ratio 1.1 (1-3) Digoxin 0.7 L (0.8-2.0) ng/ml ECG, personally reviewed: ventricularly paced with singular tanacross beat, rate 60 CXR, personally reviewed: chronic blunting of R costophrenic angle, no acute process CT brain WO, personally reviewed: IMPRESSION: Moderate volume loss and small vessel ischemic changes. No acute intracranial abnormality. Impression: 87M presenting with near-syncopal episode after bowel movement most likely representing vaso-vagal syndrome who does not wish further evaluation or work up at this time DIAGNOSIS & PLAN Primary near-syncope, suspect vaso-vagal syndrome : extreme caution to prevent falls, patient/family expressed understanding : count to 10 after standing before walking, etc : f/u with PCP within 1 week and cardiology w/i 2 weeks : return to ED for recurrent, new, or worsening symptoms; anything they feel is worrisome enough to warrant emergency evaluation : continue current medications
--- NOTE | 2018-02-18 07:35 | RAD ---
INDICATION: Syncope. COMPARISON: Comparison is made with prior chest x-ray studies from June 29, 2015 and January 29, 2018. TECHNIQUE: A portable view of the chest was obtained. FINDINGS: The heart is within normal limits in size. There is a transvenous cardiac pacemaker present. The lungs are hyperinflated. There is a small right pleural effusion. There is a focal nodular density present medially at the right lung base. This is seen on the recent prior study although is not seen on the older chest exam. The results of this exam were discussed with Dr. Washington. IMPRESSION: 1. NODULAR DENSITY AT THE MEDIAL RIGHT LUNG BASE. RECOMMEND A CT OF THE CHEST WITH CONTRAST FOR FURTHER EVALUATION. 2. SMALL RIGHT PLEURAL EFFUSION, UNCHANGED. R1
--- NOTE | 2018-02-18 14:54 | PN ---
Progress Note - Progress Note Date of Service: 02/18/18 Note: I was notified of the abnormal chest X-ray result of a nodular density at the RLL. CT chest with IV contrast has been recommended. As the patient was discharged from the ER I have notified the patient's primary care provider of the abnormal finding and recommended evaluation.
== END 2018-02-18 05:50 | disposition home or self-care (01) ==
LOC: ED 21:44
DX: H92.01 Otalgia, right ear (principal); R55 Syncope and collapse; Z79.01 Long term (current) use of anticoagulants; Z87.891 Personal history of nicotine dependence
CPT/HCPCS: 36415; 70450; 71045; 80053; 80162; 84484; 85025; 85610; 86140; 93005; 99284